=== PATIENT | male | born 1995 | race Two or more races ===

== ENCOUNTER 2020-04-15 06:48 | Emergency (ER) | payer MEDICAID ==
[~2020-04-15] VITALS: Ht 195.6 cm; Wt 103.0 kg
[2020-04-15] MEDS ORDERED: ACETAMINOPHEN WITH CODEINE 300/30MG TABLET PO ONE (07:45)
[2020-04-15 09:01] VITALS: BP 128/86
== END 2020-04-15 09:07 | disposition home or self-care (01) ==
LOC: ER 06:48
DX: S52.123A Displaced fracture of head of unspecified radius, initial encounter for closed fracture (principal); S42.402A Unspecified fracture of lower end of left humerus, initial encounter for closed fracture; W18.30XA Fall on same level, unspecified, initial encounter; Y93.66 Activity, soccer; Y92.89 Other specified places as the place of occurrence of the external cause; Y99.8 Other external cause status
CPT/HCPCS: 29105; 73080; 99283